=== PATIENT | female | born 1995 | race American Indian/Alaskan Native ===

== ENCOUNTER 2017-02-12 20:47 | Emergency (ER) | payer SELFPAY ==
[2017-02-12 20:48] VITALS: BMI 35.2
[2017-02-12] MEDS ORDERED: Tetracaine 0.5% Ophth 2 ML BOTTLE OD STA (21:15)
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
[2017-02-12 21:27] VITALS: TEMP 98.7
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
[2017-02-12] MEDS ORDERED: TDAP Vaccine 0.5 mL Syr IM ONE (22:19)
[2017-02-12 22:30] VITALS: BP 138/76; PULSE 81; RESP 18; O2SAT 99
== END 2017-02-12 22:28 | disposition short-term general hospital (02) ==
LOC: ED 20:47
DX: S05.01XA Injury of conjunctiva and corneal abrasion without foreign body, right eye, initial encounter (principal); Y04.0XXA Assault by unarmed brawl or fight, initial encounter; Z23 Encounter for immunization

== ENCOUNTER 2017-06-23 07:31 | Emergency (ER) | payer OTHER ==
[2017-06-23 07:32] VITALS: BMI 35.2
[2017-06-23 07:45] VITALS: TEMP 98.1; O2SAT 97
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
[2017-06-23 11:51] VITALS: BP 136/85; PULSE 78; RESP 18
== END 2017-06-23 09:40 | disposition home or self-care (01) ==
LOC: ED 07:31
DX: M54.9 Dorsalgia, unspecified (principal)